=== PATIENT | male | born 1945 | race Caucasian/White ===

== ENCOUNTER → 2017-10-07 09:44 | Outpatient (CLI) | payer MEDICARE, SELFPAY | PROVIDERS: PCP Nurse Practitioner; Visit Provider Urology | DX: R97.20 Elevated prostate specific antigen [PSA] (principal) | CPT/HCPCS: 36415; 84153 ==

== ENCOUNTER → 2017-10-18 08:48 | Outpatient (CLI) | payer MEDICARE, SELFPAY ==
[2017-10-18 09:28] LABS: Alanine Aminotransferase 34 U/L (12-78); Albumin Level 3.7 gm/dL (3.4-5.0); Albumin/Globulin Ratio 1.1 (1.1-1.8); Anion Gap 7.3 mEq/L (5-15); Aspartate Amino Transferase 15 U/L (15-37); Bilirubin,Total 0.9 mg/dL (0.2-1.0); Blood Urea Nitrogen 18 mg/dL (7-18); Calcium 8.6 mg/dL (8.5-10.1); Carbon Dioxide 31 mmol/L (21.0-32.0); Chloride 106 mmol/L (98-107); Creatinine,Serum 0.98 mg/dL (0.70-1.30); Estimated Glomerular Filt Rate 75 ml/min (>60); GFR (African American) 91 ML/MIN (>60); Globulin 3.4 gm/dl (1.3-3.2); Glucose 108 mg/dL (74-106); Potassium 3.3 mmoL/L (3.5-5.1); Sodium 141 mmol/L (136-145); Total Protein,Serum 7.1 gm/dL (6.4-8.2); Triglycerides 107 mg/dL (30-200)
[2017-10-18 09:29] LABS: Alkaline Phosphatase 72 U/L (46-116); Chol/HDL Ratio 3.9 (1-3.5); Cholesterol 169 mg/dL (140-200); Free T4 (Free Thyroxine) 0.94 ng/dl (0.76-1.46); HDL Cholesterol 43 mg/dL (27-67); LDL Cholesterol 105 mg/dL (0-130); Thyroid Stimulating Hormone 2.55 uIU/ml (0.358-3.740); VLDL Cholesterol 21 mg/dL (0-40)
[2017-10-18 10:19] LABS: Basophils # 0.1 K/mm3 (0-0.2); Basophils % 1.2 % (0.1-2.0); Eosinophils # 0.3 K/mm3 (0.0-0.4); Eosinophils % 4.6 % (0.1-12.0); Hematocrit 44.9 % (42.0-52.0); Hemoglobin 15.7 g/dL (14.1-18.0); Lymphocytes # 1.6 K/mm3 (0.7-4.5); Lymphocytes % 24.2 K/mm3 (10-50); Mean Corpuscular Hemoglobin 31.1 pg (27.0-31.2); Monocytes # 0.6 K/mm3 (0.1-1.0); Monocytes % 9.1 % (1.7-9.3); Platelet Count 218 K/mm3 (142-424); Red Blood Count 5.05 M/mm3 (4.60-6.20); Red Cell Distribution Width 12.7 % (11.5-17.5); White Blood Count 6.5 K/mm3 (4.8-10.8)
[2017-10-19 18:02] LABS: Vitamin B12 721 pg/mL (232-1245); Vitamin D 25 Hydroxy 20.8 ng/mL (30.0-100.0)
[2017-10-19 18:03] LABS: Folate 9.7 ng/mL (>3.0)
== END ==
PROVIDERS: Visit Provider Nurse Practitioner
DX: K21.9 Gastro-esophageal reflux disease without esophagitis (principal); M19.90 Unspecified osteoarthritis, unspecified site; N40.0 Benign prostatic hyperplasia without lower urinary tract symptoms; I10 Essential (primary) hypertension
CPT/HCPCS: 36415; 80053; 80061; 82607; 82652; 82746; 84439; 84443; 85025

== ENCOUNTER → 2018-04-08 11:37 | Outpatient (CLI) | payer MEDICARE, SELFPAY ==
[2018-04-08 13:15] LABS: Prostate Specific Ag, Diagnost 3.32 ng/mL (0.0-4.0)
== END ==
PROVIDERS: Visit Provider Urology
DX: R97.20 Elevated prostate specific antigen [PSA] (principal)
CPT/HCPCS: 36415; 84153

== ENCOUNTER → 2018-10-13 13:15 | Outpatient (CLI) | payer MEDICARE, SELFPAY ==
[2018-10-13 14:45] LABS: Prostate Specific Ag, Diagnost 5.59 ng/mL (0.0-4.0)
== END ==
PROVIDERS: Visit Provider Urology
DX: R97.20 Elevated prostate specific antigen [PSA] (principal)
CPT/HCPCS: 36415; 84153

== ENCOUNTER → 2019-04-13 13:33 | Outpatient (CLI) | payer MEDICARE, SELFPAY ==
[2019-04-13 17:57] LABS: Prostate Specific Ag, Diagnost 4.85 ng/mL (0.0-4.0)
== END ==
PROVIDERS: Visit Provider Urology
DX: R97.20 Elevated prostate specific antigen [PSA] (principal)
CPT/HCPCS: 36415; 84153

== ENCOUNTER → 2019-10-19 08:58 | Outpatient (CLI) | payer MEDICARE, SELFPAY ==
[2019-10-19 10:41] LABS: Prostate Specific Ag, Diagnost 4.05 ng/ml (0.0-4.0)
== END ==
PROVIDERS: Visit Provider Urology
DX: R97.20 Elevated prostate specific antigen [PSA] (principal)
CPT/HCPCS: 36415; 84153

== ENCOUNTER → 2020-02-09 09:55 | Outpatient (CLI) | payer MEDICARE, SELFPAY ==
[2020-02-09 10:52] LABS: Alanine Aminotransferase 16 U/L (12-78); Albumin Level 4.3 g/dl (3.5-5.0); Albumin/Globulin Ratio 1.5 (1.1-1.8); Alkaline Phosphatase 74 U/L (38-126); Anion Gap 9.3 mEq/L (5-15); Aspartate Amino Transferase 28 U/L (17-59); Bilirubin,Total 1.6 mg/dl (0.2-1.3); Blood Urea Nitrogen 22 mg/dl (9-20); Calcium 9.7 mg/dl (8.4-10.2); Carbon Dioxide 33 mmol/L (22.0-30.0); Chloride 101 mmol/L (98-107); Chol/HDL Ratio 3.5 (1-3.5); Cholesterol 166 mg/dl (140-200); Estimated Glomerular Filt Rate 82 ml/min (>60); GFR (African American) 100 ML/MIN (>60); Globulin 2.8 g/dL (1.3-3.2); Glucose 109 mg/dl (74-100); HDL Cholesterol 48 mg/dl (40-60); Magnesium 2.2 mg/dl (1.6-2.3); Potassium 3.3 mmoL/L (3.5-5.1); Sodium 140 mmol/L (136-145); Total Protein,Serum 7.1 g/dl (6.3-8.2); Triglycerides 68 mg/dl (30-150); VLDL Cholesterol 14 mg/dL (0-40)
[2020-02-09 11:03] LABS: Direct LDL Cholesterol 110.89 mg/dL (100-129)
[2020-02-09 11:21] LABS: Thyroid Stimulating Hormone 2.39 uIU/mL (0.465-4.68)
== END ==
PROVIDERS: Visit Provider Nurse Practitioner
DX: I10 Essential (primary) hypertension (principal); K21.9 Gastro-esophageal reflux disease without esophagitis
CPT/HCPCS: 36415; 80053; 80061; 83735; 84443

== ENCOUNTER → 2020-03-23 09:15 | Outpatient (CLI) | payer MEDICARE, SELFPAY ==
[2020-03-23 10:49] LABS: Chloride 102 mmol/L (98-107); Sodium 140 mmol/L (136-145)
[2020-03-23 10:50] LABS: Potassium 3.2 mmoL/L (3.5-5.1)
[2020-03-23 10:52] LABS: Alanine Aminotransferase 15 U/L (12-78); Albumin Level 3.8 g/dl (3.5-5.0); Albumin/Globulin Ratio 1.4 (1.1-1.8); Alkaline Phosphatase 65 U/L (38-126); Anion Gap 12.2 mEq/L (5-15); Aspartate Amino Transferase 23 U/L (17-59); Bilirubin,Total 1.5 mg/dl (0.2-1.3); Blood Urea Nitrogen 20 mg/dl (9-20); Carbon Dioxide 29 mmol/L (22.0-30.0); Estimated Glomerular Filt Rate 65 ml/min (>60); GFR (African American) 79 ML/MIN (>60); Globulin 2.8 g/dL (1.3-3.2); Total Protein,Serum 6.6 g/dl (6.3-8.2)
[2020-03-23 10:53] LABS: Calcium 9.5 mg/dl (8.4-10.2); Glucose 95 mg/dl (74-100)
== END ==
PROVIDERS: Visit Provider Nurse Practitioner Family
DX: R17 Unspecified jaundice (principal); E87.6 Hypokalemia
CPT/HCPCS: 36415; 80053

== ENCOUNTER → 2020-04-19 07:58 | Outpatient (CLI) | payer MEDICARE, SELFPAY ==
[2020-04-19 10:11] LABS: Prostate Specific Ag, Diagnost 4.48 ng/ml (0.0-4.0)
== END ==
PROVIDERS: Visit Provider Urology
DX: N40.0 Benign prostatic hyperplasia without lower urinary tract symptoms (principal)
CPT/HCPCS: 36415; 84153

== ENCOUNTER → 2020-11-04 14:15 | Outpatient (CLI) | payer MEDICARE, SELFPAY ==
[2020-11-04 14:39] LABS: Alanine Aminotransferase 21 U/L (12-78); Albumin Level 4.1 g/dl (3.5-5.0); Albumin/Globulin Ratio 1.4 (1.1-1.8); Alkaline Phosphatase 64 U/L (38-126); Anion Gap 12.5 mEq/L (5-15); Aspartate Amino Transferase 29 U/L (17-59); Basophils # 0.1 K/mm3 (0-0.2); Basophils % 1.1 % (0.1-2.0); Bilirubin,Total 1.3 mg/dl (0.2-1.3); Blood Urea Nitrogen 23 mg/dl (9-20); Calcium 9.8 mg/dl (8.4-10.2); Carbon Dioxide 26 mmol/L (22.0-30.0); Chloride 108 mmol/L (98-107); Cholesterol 166 mg/dl (140-200); Eosinophils # 0.3 K/mm3 (0.0-0.4); Eosinophils % 4.2 % (0.1-12.0); Estimated Glomerular Filt Rate 82 ml/min (>60); GFR (African American) 100 ML/MIN (>60); Glucose 121 mg/dl (74-100); HDL Cholesterol 41 mg/dl (40-60); Lymphocytes # 1.6 K/mm3 (0.7-4.5); Lymphocytes % 24.5 % (10-50); Mean Corpuscular HGB Conc 33.4 g/dL (31.8-35.4); Mean Corpuscular Hemoglobin 31.2 pg (27.0-31.2); Mean Corpuscular Volume 93.6 fl (80-94); Mean Platelet Volume 8.3 fl (7.4-10.4); Monocytes # 0.5 K/mm3 (0.1-1.0); Monocytes % 6.9 % (1.7-9.3); Neutrophils # 4.3 K/mm3 (1.8-7.8); Neutrophils % 63.5 % (37.0-80.0); Platelet Count 218 K/mm3 (142-424); Potassium 3.5 mmoL/L (3.5-5.1); Red Blood Count 4.81 M/mm3 (4.60-6.20); Red Cell Distribution Width 13.1 % (11.5-17.5); Sodium 143 mmol/L (136-145); Total Protein,Serum 7.1 g/dl (6.3-8.2); Triglycerides 79 mg/dl (30-150); VLDL Cholesterol 16 mg/dL (0-40); White Blood Count 6.7 K/mm3 (4.8-10.8)
[2020-11-04 15:02] LABS: Hemoglobin A1C 5.2 % (4.0-6.0)
[2020-11-04 15:10] LABS: Prostate Specific Ag Screen 3.5 ng/ml (0.0-4.0); Thyroid Stimulating Hormone 2.73 uIU/mL (0.465-4.68)
[2020-11-10 11:38] LABS: Testosterone, Total, LC/MS 447.2 ng/dL (264.0-916.0)
== END ==
PROVIDERS: Visit Provider Family Medicine
DX: I10 Essential (primary) hypertension (principal); R53.83 Other fatigue; Z12.5 Encounter for screening for malignant neoplasm of prostate; E11.9 Type 2 diabetes mellitus without complications
CPT/HCPCS: 80053; 80061; 83036; 84402; 84403; 84436; 84443; 85025; G0103

== ENCOUNTER 2021-03-18 11:23 | Emergency (ER) | payer MEDICARE, SELFPAY ==
[2021-03-18 12:21] VITALS: BP 136/91; PULSE 68; RESP 16; TEMP 36.7; O2SAT 98; BMI 31.1
--- NOTE | 2021-03-18 12:25 | HMH.EDUTC ---
[facility] [place] Disposition Clinical Impression: Close exposure to COVID-19 virus Acute bronchitis Qualifiers: Bronchitis organism: unspecified organism Qualified Code(s): J20.9 - Acute bronchitis, unspecified Disposition: Home, Self-Care Condition on Discharge: Good Instructions: DI for COVID-19 (Suspected or Confirmed ), COVID-19: Protecting Yourself When You're at High Risk, Preventing the Spread of Coronavirus Discharge Instructions, DI for Acute Bronchitis Additional Instructions: No sign of a bacterial infection. Likely viral. Viruses can take 7-14 days to run their course. Nasal saline and bulb syringe or nose Virgen to remove nasal drainage to help with nasal congestion. Hard to eat, drink, sleep with nasal congestion so important to keep this cleaned out. Monitor temp. Tylenol or Motrin as needed for pain or fever Encourage fluids, water, Gatorade, Powerade, Pedialyte if infant/toddler/child Warm salt water gargles Warm fluids Sore throat lozenges Sleep elevated Humidifier/vaporizer covid swab was sent to lab, call later today for results. self isolate until test results are known to be negative Follow-up immediately for new or worsening symptoms or no noticeable improvement over the next 48-72 hours. Prescriptions: predniSONE [Prednisone 20mg Tab] 20 mg PO BID #10 tab Prescription Printed Azithromycin [Zithromax 250mg tab] 250 mg PO DIRECTED #6 tab Prescription Printed Referrals: Aldair Triana MD [Primary Care Provider] - Time of Disposition: 12:31 Medical Decision Making - Ethan Inquiry Pt receiving controlled substance: No Vital Signs: 03/18/21 12:21 Temperature 98.0 F Temperature Source Oral Pulse Rate [Apical] 68 Respiratory Rate 16 Blood Pressure [Right Arm] 136/91 H Blood Pressure Mean [Right Arm] 106 Blood Pressure Source [Right Arm] Automatic Cuff Blood Pressure Position [Right Arm] Supine 02 Sat by Pulse Oximetry 98 Oxygen Delivery Method Room Air Orders (Tests/Meds): ORDERS Category Date Time Status Covid-19 Nasal PCR ([facility]) Routine Lab 03/18/21 12:08 Received [facility] [place] HPI - General Chief complaint: Urgent [facility] Stated complaint: covid test Time Seen by Provider: 03/18/21 12:25 Mode of Arrival: Ambulatory Source of Information: Patient Limitations: No Limitations Description of Symptoms (Recalled from Triage Doc. by RN): covid exposure,congestio HEENT Symptoms (Recalled from RN notes): Yes Resp Symptoms (Recalled from RN notes): No Skin Symptoms (Recalled from RN notes): No MS Symptoms (Recalled from RN notes): No Functional Status (Recalled from RN notes): na - History of Present Illness Provider Complaint: 75 yr old male presents for nasal congestion, sinus pressure, cough, chest congestion and tiredness. has been exposed to covid - Related Data Home Medications Medication Instructions Recorded Confirmed amlodipine 10 mg-atorvastatin 10 1 tab PO QDAY 09/24/17 11/04/20 mg tablet losartan 50 mg-hydrochlorothiazide 1 tab PO QDAY 09/24/17 11/04/20 12.5 mg tablet tamsulosin 0.4 mg capsule 0.4 mg PO QHS cap 09/24/17 11/04/20 celecoxib 200 mg capsule 200 mg PO DAILY 10/20/19 11/04/20 Previous Rx's Medication Instructions Recorded omeprazole 40 mg capsule,delayed 40 mg PO QDAY #90 cap 11/04/20 release budesonide-formoterol HFA 160 2 inh INHALATION BID #10.2 g 11/07/20 mcg-4.5 mcg/actuation aerosol inhaler Azithromycin [Zithromax 250mg 250 mg PO DIRECTED #6 tab 03/18/21 tab] predniSONE [Prednisone 20mg 20 mg PO BID #10 tab 03/18/21 Tab] Allergies Allergy/AdvReac Type Severity Reaction Status Date / Time NO KNOWN ALLERGIES - NKA Allergy Unknown Uncoded 11/04/20 10:03 - Worker's Comp Is this a Worker's Comp case?: No [facility] History - Hepatitis A Screen Drug use history?: No High risk sexual behaviors?: No History of sexually transmitted infection?: No 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
[2021-03-18 12:33] VITALS: BP 136/91; PULSE 68; RESP 16; TEMP 36.7
== END 2021-03-18 12:34 | disposition home or self-care (01) ==
PROVIDERS: Emergency Provider Nurse Practitioner Family; PCP Family Medicine
DX: U07.1 COVID-19 (principal); J20.9 Acute bronchitis, unspecified
CPT/HCPCS: G0463; 99202; U0003

== ENCOUNTER → 2021-04-20 08:20 | Outpatient (CLI) | payer MEDICARE, SELFPAY ==
--- NOTE | 2021-03-18 16:30 | PC.NURSE ---
Patient contacted with positive covid results. Advised patient to self quarantine for 2 weeks.
[2021-04-20 10:11] LABS: Prostate Specific Ag, Diagnost 4.44 ng/ml (0.0-4.0)
== END ==
PROVIDERS: Visit Provider Urology
DX: N40.1 Benign prostatic hyperplasia with lower urinary tract symptoms (principal)
CPT/HCPCS: 36415; 84153

== ENCOUNTER → 2022-04-24 10:38 | Outpatient (CLI) | payer MEDICARE, SELFPAY ==
[2022-04-25 10:12] LABS: PSA, Free 0.89 ng/mL
== END ==
PROVIDERS: PCP Family Medicine; Visit Provider Urology
DX: R97.20 Elevated prostate specific antigen [PSA] (principal)
CPT/HCPCS: 36415; 84153; 84154

== ENCOUNTER → 2022-08-06 10:27 | Outpatient (CLI) | payer MEDICARE, SELFPAY ==
[2022-08-06 11:15] LABS: Basophils # 0.1 K/mm3 (0-0.2); Eosinophils # 0.3 K/mm3 (0.0-0.4); Eosinophils % 3.6 % (0.1-12.0); Hematocrit 48.6 % (42.0-52.0); Hemoglobin 16.4 g/dL (14.1-18.0); Lymphocytes # 1.6 K/mm3 (0.7-4.5); Lymphocytes % 21.1 % (10-50); Mean Corpuscular HGB Conc 33.7 g/dL (31.8-35.4); Mean Corpuscular Hemoglobin 31.1 pg (27.0-31.2); Mean Corpuscular Volume 92.2 fl (80-94); Monocytes # 0.5 K/mm3 (0.1-1.0); Neutrophils # 5.2 K/mm3 (1.8-7.8); Neutrophils % 68.3 % (37.0-80.0); Platelet Count 256 K/mm3 (142-424); Red Blood Count 5.27 M/mm3 (4.60-6.20); Red Cell Distribution Width 13.1 % (11.5-17.5); White Blood Count 7.6 K/mm3 (4.8-10.8)
[2022-08-06 11:50] LABS: Hemoglobin A1C 5.3 % (4.0-6.0)
[2022-08-06 12:03] LABS: Alanine Aminotransferase 19 U/L (12-78); Albumin Level 4.3 g/dl (3.5-5.0); Albumin/Globulin Ratio 1.6 (1.1-1.8); Alkaline Phosphatase 116 U/L (38-126); Anion Gap 10.6 mEq/L (5-15); Aspartate Amino Transferase 25 U/L (17-59); Bilirubin,Total 1.2 mg/dl (0.2-1.3); Blood Urea Nitrogen 16 mg/dl (9-20); Calcium 9.9 mg/dl (8.4-10.2); Carbon Dioxide 30 mmol/L (22.0-30.0); Chloride 105 mmol/L (98-107); Chol/HDL Ratio 3.1 (1-3.5); Cholesterol 148 mg/dl (140-200); Estimated Glomerular Filt Rate 72 ml/min (>60); GFR (African American) 88 ML/MIN (>60); Globulin 2.7 g/dL (1.3-3.2); Glucose 97 mg/dl (74-100); HDL Cholesterol 47 mg/dl (40-60); Potassium 3.6 mmoL/L (3.5-5.1); Sodium 142 mmol/L (136-145); Triglycerides 78 mg/dl (30-150); VLDL Cholesterol 16 mg/dL (0-40)
[2022-08-06 12:15] LABS: Direct LDL Cholesterol 77.11 mg/dL (100-129)
[2022-08-07 08:47] LABS: PSA, Free 0.94 ng/mL; Prostate Specific Ag 3.8 ng/mL (0.0-4.0)
== END ==
PROVIDERS: Nurse Practitioner Family; PCP Family Medicine; Visit Provider Family Medicine
DX: E78.2 Mixed hyperlipidemia (principal); E11.9 Type 2 diabetes mellitus without complications; I10 Essential (primary) hypertension; E87.6 Hypokalemia; Z12.5 Encounter for screening for malignant neoplasm of prostate; N40.0 Benign prostatic hyperplasia without lower urinary tract symptoms
CPT/HCPCS: 36415; 80053; 80061; 83036; 84153; 84154; 85025

== ENCOUNTER 2024-04-18 21:40 | Emergency (ER) | payer MEDICARE, SELFPAY ==
[2024-04-18 21:42] VITALS: BP 196/103; PULSE 114; RESP 18; TEMP 36.7; O2SAT 97; BMI 33.0
--- NOTE | 2024-04-18 21:54 | XR_ITS ---
PROCEDURE INFORMATION: Exam: XR Left Tibia and Fibula Exam date and time: 04/18/2024 10:02 PM Age: 78 years old Clinical indication: Injury or trauma; Other: Dog bite; Puncture; Lower leg; Left; Foreign body involvement not specified; Additional info: Dog bite, rule out teeth posteiro calf TECHNIQUE: Imaging protocol: Radiologic exam of the left tibia and fibula. Views: 2 views. COMPARISON: No relevant prior studies available. FINDINGS: Bones/joints: Normal. Soft tissues: Soft tissue gas and edema in the posterior calf soft tissues. No radiopaque foreign bodies. Vasculature: Vascular calcifications. IMPRESSION: Soft tissue gas and edema in the posterior calf soft tissues. No radiopaque foreign bodies.
--- NOTE | 2024-04-18 22:21 | HMH.EDGENADL ---
Discharge Plan Disposition Patient Disposition: Home, Self-Care Chief Complaint: Animal Bite Prescriptions Prescriptions: New amoxicillin-pot clavulanate 875-125 mg tablet 1 tab PO BID 7 Days Qty: 14 0RF No Action Debrox 6.5 % drops 5 drp otic (ear) DAILY 4 Days Qty: 15 0RF alfuzosin 10 mg tablet extended release 24 hr 10 mg PO DAILY Qty: 90 3RF Rx Instructions: administer after the same meal each day budesonide-formoterol 160-4.5 mcg/actuation HFA aerosol inhaler 2 inh INHALATION BID Qty: 10.2 10RF losartan-hydrochlorothiazide 50-12.5 mg tablet See Rx Instructions .ROUTE .COMPLEX Qty: 90 3RF Dose Instruction: TAKE 1 TABLET DAILY Rx Instructions: TAKE 1 TABLET DAILY tamsulosin 0.4 mg capsule See Rx Instructions .ROUTE .COMPLEX Qty: 90 3RF Dose Instruction: TAKE 1 CAPSULE AT BEDTIME Rx Instructions: TAKE 1 CAPSULE AT BEDTIME potassium chloride 10 mEq capsule, extended release 10 meq PO DAILY Qty: 90 3RF celecoxib 200 mg capsule See Rx Instructions .ROUTE .COMPLEX Qty: 90 3RF Dose Instruction: TAKE 1 CAPSULE DAILY Rx Instructions: TAKE 1 CAPSULE DAILY omeprazole 40 mg capsule,delayed release(DR/EC) See Rx Instructions .ROUTE .COMPLEX Qty: 90 3RF Dose Instruction: TAKE 1 CAPSULE DAILY Rx Instructions: TAKE 1 CAPSULE DAILY amlodipine-atorvastatin 10-10 mg tablet See Rx Instructions .ROUTE .COMPLEX Qty: 90 3RF Dose Instruction: TAKE 1 TABLET DAILY Rx Instructions: TAKE 1 TABLET DAILY Referrals Follow up/Referrals: Babar Jerome MD [Primary Care Provider] - See instructions Activity Restrictions/Add. Instructions Additional Instructions/Restrictions: Call your family doctor to establish care for this visit to the emergency department and schedule follow-up within 48 hours to ensure improvement. If you have any worsening of your condition or any other concerning signs or symptoms, return to the emergency department or your primary care doctor for further evaluation. You will be contacted by infusion clinic. You will need to receive rabies vaccinations on 04/21, 04/25, and 05/02 for the full series. Take Augmentin twice daily for 7 days. Clinical Impressions Clinical Impression: Dog bite Instructions Patient Instructions: Animal Bites Print Language Print Language: Hebrew Discharge ED Provider: Luisito Cabrales General Adult HPI General Chief complaint: Animal Bite Stated complaint: [id number] dog bite LT leg Time Seen by Provider: 04/18/24 21:45 Mode of Arrival: Ambulatory Source of Information: Patient and Spouse Limitations: No Limitations Description of Symptoms (Recalled from ER Triage Doc. by RN): Pt presents to ED for a dog bite. Pt states his neighbor's pit bull mix attacked his L calf and it was unprovoked. Pt has visible puncture wonds and is bleeding from the site. Pt is not sure if the dog is up to date on vaccinations. Pt's family is trying to get in touch with the scrum product owner at this time. Pt is A&O*4. History of Present Illness HPI narrative: Please note that above description of symptoms, in this electronic medical record under categorization of recalled from ER triage doctor by RN are reflective of an initial nursing assessment, however, is not reflective of my full history and physical exam that was personally taken and clarified. Consequentially, this preceding description of symptoms, which may include the patient's categorized chief complaint in the EMR, do not reflect my personal clinical impression, and the ultimate description of history of present illness and patient stated complaints should be deferred to this section of the note. Unless stated otherwise or congruent with this section of the note, additional signs, symptoms, or incongruence should be interpreted as inaccurate with my clinical impression. Related Data Previous Rx's ?Medication ?Instructions ?Recorded alfuzosin 10 mg tablet,extended 10 mg PO DAILY #90 tabs 06/06/21 release 24 hr budesonide-formoterol HFA 160 2 inh inhalation BID #10.2 grams 06/06/21 mcg-4.5 mcg/actuation aerosol inhaler losartan 50 mg-hydrochlorothiazide See Rx Instructions .Route 05/14/22 12.5 mg tablet .COMPLEX #90 tabs tamsulosin 0.4 mg capsule See Rx Instructions .Route 07/30/22 .COMPLEX #90 caps carbamide peroxide 6.5 % ear drops 5 drp otic (ear) DAILY 4 days #15 08/09/22 (Debrox) mL potassium chloride 10 mEq 10 meq PO DAILY #90 caps 09/27/22 capsule,extended release celecoxib 200 mg capsule See Rx Instructions .Route 05/30/23 .COMPLEX #90 caps omeprazole 40 mg capsule,delayed See Rx Instructions .Route 05/30/23 release .COMPLEX #90 caps amlodipine 10 mg-atorvastatin 10 See Rx Instructions .Route 06/03/23 mg tablet .COMPLEX #90 tabs amoxicillin 875 mg-potassium 1 tab PO BID 7 days #14 tabs 04/18/24 clavulanate 125 mg tablet Allergies Allergy/AdvReac Type Severity Reaction Status Date / Time NO KNOWN ALLERGIES - NKA Allergy Unknown Uncoded 08/09/22 10:25 [facility] Disclaimer: The information contained in this section may have been updated after the patient was seen, as this information can be updated by other users. Medical History (Updated 04/18/24 @ 23:42 by Luisito Cabrales MD) Normal colonoscopy Social History (Updated 04/24/22 @ 16:07 by Triston Foster MD) Smoking Status: Never smoker alcohol intake: current alcohol intake frequency: a few times a week substance use type: denies use current occupational status: retired Travel in the last 8 weeks: None household members: spouse housing: house ROS Obtained: Yes All systems reviewed & no additional complaints except as documented Physical Exam General General appearance: alert Head Head exam: atraumatic and normocephalic Eye Eye exam: Present normal appearance, PERRL and EOMI Neck Neck exam: Present normal inspection, full ROM and trachea midline Respiratory Respiratory exam: Absent respiratory distress, wheezes, stridor, accessory muscle use or prolonged expiratory phase Cardiovascular Cardiovascular exam: Present other (Pulses equal symmetric in upper and lower extremities) Abdominal Exam Abdominal exam: Present soft; Absent distention, tenderness or pulsatile mass Extremities Exam Extremities exam: Present other (Per MDM); Absent edema Neurological Exam Neurological exam: Present alert, oriented X3 and CN II-XII intact; Absent motor sensory deficit Skin Skin exam: Present warm and dry; Absent diaphoresis or erythema Medical Decision Making Medical Records Medical records reviewed: Yes I reviewed the patient's medical records. Ethan Inquiry Pt receiving controlled substance: No Ethan was queried for this patient: No Vital Signs: 04/18/24 21:42 Temperature 98.1 F Temperature Source Oral Pulse Rate [Left] 114 H Respiratory Rate 18 Blood Pressure [Right Arm] 196/103 H Blood Pressure Mean [Right Arm] 134 02 Sat by Pulse Oximetry 97 Oxygen Delivery Method Room Air Orders (Tests/Meds): ED MEDICATIONS Discontinued Medications Generic Name Dose Route Start Last Admin Trade Name Freq PRN Reason Stop Dose Admin Amoxicillin/Clavulanate Potassium 1 each 04/18/24 21:55 04/18/24 22:23 Amoxicillin/Clavulanate Potassium 875/125mg Tablet PO 04/18/24 21:56 1 each ONCE ONE Administration Lidocaine HCl 20 ml 04/18/24 21:54 04/18/24 22:23 Lidocaine 1% 20ml Mdv SQ 04/18/24 21:55 20 ml ONCE ONE Administration Rabies Immune Globulin 2,086.52 unit 04/18/24 23:16 Rabies Immune Globulin/Pf 300 Unit/Ml Vial IM 04/18/24 23:17 ONCE ONE Rabies Vaccine 2.5 unit 04/18/24 23:16 Rabies Vaccine (Pcec)/Pf 2.5 Unit Vial IM 04/18/24 23:17 .ONCE ONE Tetanus/Reduced Diphtheria/Acell Pertussis 0.5 ml 04/18/24 21:54 04/18/24 22:22 Tet/Diphth/Pert-Adult 0.5ml Syringe IM 04/18/24 21:55 0.5 ml .ONCE ONE Administration ORDERS Category Date Time Status Fibula/tibia XR left 2 views [XR tibia fibula LT 2V] Exams 04/18/24 21:54 Completed Stat Medical Decision Narrative: 78-year-old male no relevant medical history presenting with concern for dog bite. Patient was bit by neighbors dog just prior to arrival. Unknown vaccination status. Patient does not remember his last tetanus shot. Patient currently having mild to moderate pain in posterior aspect of left calf. Able to ambulate, but does have pain. History obtained the patient and . On arrival, patient hemodynamically stable, very well-appearing. He has multiple subcentimeter lacerations to posterior aspect of his left medial calf. Neurovascularly intact. Hemostatic. No obvious foreign body. Patient to receive pain control with subcutaneous lidocaine infiltration. Tdap and Augmentin. X-rays to be obtained. Independent interpretation of x-rays demonstrate no acute bony abnormality, no foreign body. Patient irrigated extensively, larger lacerations were loosely closed. Patient was given rabies immunoglobulin proximal to the calf injury, given rabies vaccine in the deltoid. Because patient at baseline without signs or symptoms of clinical decompensation, deemed appropriate for discharge. Results were relayed to patient who voiced understanding and were agreeable to outpatient management and follow up. I discussed my clinical impression with patient and answered all questions. At this time, the evidence for any other entities in the differential is insufficient to warrant any further testing or ED observation. This was explained as well. Advisory was given that persistent or worsening symptoms require further evaluation. I confirmed the understanding of this discussion. Director Of Patient Financial Services disclaimer Much of this encounter note is an electronic assistant gm of content & delivery spoken language to printed text. Electronic assistant gm of content & delivery of the spoken language may permit errors. Although I have reviewed the note, some errors may still exist. Procedures Laceration Laceration 1: Site: lower extremity Side (If applicable): left Size (cm): 2 Description: flap and irregular Local Anesthetic: lidocaine 1% Amount of anesthesia used (mL): 5 Pre-repair: wound explored, irrigated extensively and deep structures intact Skin layer closed with: nylon Size (cm): 3-0 Number of sutures: 2 Technique: simple, interrupted Laceration 2: Site: lower extremity Side (If applicable): left Size (cm): 2 Description: flap and irregular Local Anesthetic: lidocaine 1% Amount of anesthesia used (mL): 3 Size (cm): 3-0 Number of sutures: 3 Technique: simple, interrupted Laceration 3: Site: lower extremity Side (If applicable): left Size (cm): 1 Description: flap and irregular Depth: involves subcutaneous layer and involves muscle layer Local Anesthetic: lidocaine 1% Amount of anesthesia used (mL): 3 Pre-repair: wound explored and irrigated extensively Skin layer closed with: nylon Size (cm): 3-0 Number of sutures: 1 Critical Care Critical Care Time Critical Care Time: No
[2024-04-18] MEDS: TET/DIPHTH/PERT-ADULT 0.5ML SYRINGE 0.5 ML IM (22:22)
[2024-04-18] MEDS: AMOXICILLIN/CLAVULANATE POTASSIUM 875/125MG TABLET 1 EACH PO (22:23)
[2024-04-18] MEDS: LIDOCAINE 1% 20ML MDV 20 ML SQ (22:23)
[2024-04-18] MEDS: RABIES VACCINE (PCEC)/PF 2.5 UNIT VIAL IM (23:38)
[2024-04-18] MEDS: RABIES IMMUNE GLOBULIN/PF 300 UNIT/ML VIAL 2086.52 UNIT IM (23:40)
[2024-04-18 23:48] VITALS: BP 139/75; PULSE 88; RESP 16; TEMP 36.6; O2SAT 96
== END 2024-04-18 23:58 | disposition home or self-care (01) ==
PROVIDERS: Emergency Provider Emergency Medicine; PCP Family Medicine
DX: S81.852A Open bite, left lower leg, initial encounter (principal); W54.0XXA Bitten by dog, initial encounter; Y92.9 Unspecified place or not applicable; Z23 Encounter for immunization
CPT/HCPCS: 12032; 73590; 90375; 90471; 90675; 90715; 96372; 99283

== ENCOUNTER 2024-04-21 10:56 | Outpatient (CLI) | payer MEDICARE, SELFPAY ==
[2024-04-21] MEDS: RABIES VACCINE (PCEC)/PF 2.5 UNIT VIAL IM (11:12)
[2024-04-21 11:15] VITALS: BP 129/76; PULSE 84; RESP 18; O2SAT 100
== END 2024-04-21 11:20 | disposition home or self-care (01) ==
LOC: INF 10:59
PROVIDERS: PCP Family Medicine; Visit Provider Emergency Medicine
DX: Z29.14 Encounter for prophylactic rabies immune globulin (principal)
CPT/HCPCS: J1554; 90675; 96372

== ENCOUNTER 2024-04-25 09:22 | Outpatient (CLI) | payer MEDICARE, SELFPAY ==
[2024-04-25 09:45] VITALS: BP 136/80; PULSE 82; RESP 18; TEMP 36.8; O2SAT 96; BMI 329959.7
[2024-04-25] MEDS: RABIES VACCINE (PCEC)/PF 2.5 UNIT VIAL IM (09:45)
== END 2024-04-25 09:59 | disposition home or self-care (01) ==
PROVIDERS: PCP Family Medicine; Visit Provider Emergency Medicine
DX: Z29.14 Encounter for prophylactic rabies immune globulin (principal)
CPT/HCPCS: 90675; 96372; G0463

== ENCOUNTER 2024-05-01 09:44 | Outpatient (CLI) | payer MEDICARE, SELFPAY ==
[2024-05-01 09:50] VITALS: BP 127/68; PULSE 77; RESP 18; TEMP 36.7; O2SAT 98
[2024-05-01] MEDS: RABIES VACCINE (PCEC)/PF 2.5 UNIT VIAL IM (10:02)
== END 2024-05-01 10:10 | disposition home or self-care (01) ==
LOC: INF 09:45
PROVIDERS: PCP Family Medicine; Visit Provider Emergency Medicine
DX: Z29.14 Encounter for prophylactic rabies immune globulin (principal)
CPT/HCPCS: 90675; 96372